=== PATIENT | female | born 1965 | race Caucasian/White ===

== ENCOUNTER 2017-05-04 17:04 | Emergency (ER) | payer BC ==
[2017-05-04 18:10] VITALS: BP 112/70
--- NOTE | 2017-05-04 18:12 | UC ---
Throat Pain/Nasal Serjio HPI - HPI Summary HPI Summary: 52 y/o female presents to the urgent care c/o sinus congestion, with clear nasal discharge since Sunday05/02/2017. Pt reports states symptoms started worse with B/L ear pressure, ORTIZ and dry cough yesterday, specially at night time. She started using Flonase nasal spray yesterday with Benadryl PO to alleviate symptoms. Pt denies fever, SOB, chest pain, N/V/D. Pt recently had the flu vaccine - History of Current Complaint Chief Complaint: UCGeneralIllness Stated Complaint: SINUSES Time Seen by Provider: 05/04/17 17:22 Hx Obtained From: Patient Hx Last Menstrual Period: NONE SINCE 2009 ?: No Onset/Duration: Gradual Onset, Lasting Days - 3 days, Still Present Severity: Mild Pain Intensity: 4 - sinus pain Pain Scale Used: 0-10 Numeric Cough: Nonproductive Associated Signs & Symptoms: Positive: Sinus Discomfort, Nasal Discharge. Negative: Dysphagia, Wheezing, Fever Related History: Seasonal Allergies - Epiglottits Risk Factors Epiglottis Risk Factors: Negative - Allergies/Home Medications Allergies/Adverse Reactions: Allergies Allergy/AdvReac Type Severity Reaction Status Date / Time Meloxicam Allergy Severe See Comment Verified 05/04/17 18:10 PMH/Surg Hx/FS Hx/Imm Hx Previously Healthy: Yes - Pt denies PMHX - Surgical History Surgical History: Yes Surgery Procedure, Year, and Place: Tonsilectomy. POLYPECTOMY-CERVICAL. CYSTECTOMY-BREAST - Family History Known Family History: Positive: None - Pt denies FMHX - Social History Occupation: Employed Full-time Lives: With Family Alcohol Use: Occasionally Substance Use Type: None Smoking Status (MU): Never Smoked Tobacco - Immunization History Most Recent Influenza Vaccination: [id number] Vaccination Up to Date: Yes Review of Systems Constitutional: Negative Skin: Negative Eyes: Negative ENT: Ear Ache - B/L ear pressure, Nasal Discharge - clear nasal discharge, Sinus Congestion, Sinus Pain/Tenderness Respiratory: Cough - dry Cardiovascular: Negative Gastrointestinal: Negative Genitourinary: Negative Motor: Negative Neurovascular: Negative Musculoskeletal: Negative Neurological: Negative Psychological: Negative Is Patient Immunocompromised?: No All Other Systems Reviewed And Are Negative: Yes Physical Exam Triage Information Reviewed: Yes - Additional Comments Vitals: reviewed General: Well developed, well-nourished female patient with NAD. Head and face: Normocephalic and atraumatic, Positive tenderness over the frontal and maxillary sinuses.. Eyes: PERRLA, EOMI x 2. Normal conjunctiva. No eye discharge. ENT: Ears and TM with normal limits. Nose: with yellowish discharge and erythematous mucosa. Pharynx with erythema, no exudate. Neck: Supple, no JVD, no carotid bruits and no lymphadenopathy. Lungs: clear, no rales, no rhonchi, no wheezes. CVS: RRR, S1 and S2 present no murmurs or gallops appreciated. Abdomen: soft nontender with positive bowel sounds. Extremities: no edema noted. Neuro: WNL. Throat Pain/Nasal Course/Dx - Course Course Of Treatment: 52 y/o female presents to the urgent care c/o sinus congestion, with clear nasal discharge since Sunday05/02/2017. Pt reports states symptoms started worse with B/L ear pressure, ORTIZ and dry cough yesterday , specially at night time. She started using Flonase nasal spray yesterday with Benadryl PO to alleviate symptoms. Pt denies fever, SOB, chest pain, N/V/DPt recently had the flu vaccine. Hx obtained. Pt with allergic sinusitis on examination. Pt Rx Claritin PO, advised to continue using the Flonase nasal spray, increase fluid intake, rest and eat well. Take Tylenol PO for sinus pain or headache. Pt explained D/C instructions. Pt understood and agreed with plan of care. Discharge instructions explained to Pt. Advised to Return to the clinic or PCP if symptoms do not improve.Pt understood and agreed with plan of care. - Differential Dx/Diagnosis Differential Diagnosis/HQI/PQRI: Influenza, Laryngitis, Otitis Media, Pharyngitis, Sinusitis, Tonsillitis, URI Provider Diagnoses: 1- Acute sinusitis Discharge - Discharge Plan Condition: Stable Disposition: HOME Prescriptions: Loratadine & Pseudoephedrine [Claritin-D 12 Hour] 1 tab PO BID #30 tab Patient Education Materials: Sinusitis (ED), Upper Respiratory Infection (ED) Referrals: Taj Conway DO [Primary Care Provider] - Additional Instructions: 1- Please increase fluid intake and rest. 2-Continue using Flonase as directed to help drain fluid. Also buy saline drops to clear sinuses 3-Take Sudafed or Claritin PO to alleviates sinus congestion 4-Return to the clinic or PCP if symptoms do not improve for further management and treatment 5- Take Tylenol or Ibuprofen PO to alleviate sinus pain or headache
== END 2017-05-04 18:20 | disposition home or self-care (01) ==
LOC: UCCORT 17:04
DX: J01.90 Acute sinusitis, unspecified (principal)
CPT/HCPCS: 99211; G0463

== ENCOUNTER 2018-04-15 14:55 | Emergency (ER) | payer BC ==
[2018-04-15 15:31] VITALS: BP 111/59
--- NOTE | 2018-04-15 15:49 | ED ---
Throat Pain/Nasal Congestion - HPI Summary HPI Summary: 52 yr old with runny nose, post nasal drip, sinus congestion , pressure and cough. She feels she has a sinus infection. Tmax 101 over the weekend. - History of Current Complaint Chief Complaint: UCGeneralIllness Time Seen by Provider: 04/15/18 15:42 - Allergies/Home Medications Allergies/Adverse Reactions: Allergies Allergy/AdvReac Type Severity Reaction Status Date / Time meloxicam Allergy Intermediate See Comment Verified 04/15/18 15:31 PMH/Surg Hx/FS Hx/Imm Hx Respiratory History: Reports: Hx Asthma - WINTER ONLY - Surgical History Surgery Procedure, Year, and Place: Tonsilectomy. POLYPECTOMY-CERVICAL. CYSTECTOMY-BREAST Infectious Disease History: No Infectious Disease History: Denies: Traveled Outside the [place] in Last 30 Days - Family History Known Family History: Positive: None - Social History Occupation: Employed Full-time Alcohol Use: Occasionally Substance Use Type: Reports: None Smoking Status (MU): Never Smoked Tobacco Review of Systems Positive: Fever, Chills Positive: Sore Throat, Ear Ache, Nasal Discharge Positive: Cough All Other Systems Reviewed And Are Negative: Yes Physical Exam Triage Information Reviewed: Yes Vital Signs On Initial Exam: Initial Vitals Temp Pulse Resp BP Pulse Ox 97.6 F 82 16 111/59 99 04/15/18 15:25 04/15/18 15:25 04/15/18 15:25 04/15/18 15:25 04/15/18 15:25 Vital Signs Reviewed: Yes Appearance: Positive: Well-Appearing, No Pain Distress Skin: Positive: Warm, Skin Color Reflects Adequate Perfusion Head/Face: Positive: Normal Head/Face Inspection Eyes: Positive: EOMI ENT: Positive: Pharynx normal, Nasal congestion, Nasal drainage, TMs normal, Sinus tenderness Neck: Positive: Nontender Respiratory/Lung Sounds: Positive: Clear to Auscultation, Breath Sounds Present Cardiovascular: Positive: RRR. Negative: Murmur Abdomen Description: Positive: Nontender Musculoskeletal: Positive: Strength/ROM Intact Neurological: Positive: Sensory/Motor Intact, Alert, Oriented to Person Place, Time, CN Intact II-III Psychiatric: Positive: Normal - [place] Coma Scale Best Eye Response: 4 - Spontaneous Best Motor Response: 6 - Obeys Commands Best Verbal Response: 5 - Oriented Coma Scale Total: 15 Diagnostics - Vital Signs Vital Signs Temp Pulse Resp BP Pulse Ox 04/15/18 15:25 97.6 F 82 16 111/59 99 - Laboratory Lab Statement: Any lab studies that have been ordered have been reviewed, and results considered in the medical decision making process. EENT Course/Dx - Course Course Of Treatment: 52 yr old with sinusitis. Rx cefdinir - Diagnoses Provider Diagnoses: Sinusitis Discharge - Sign-Out/Discharge Documenting (check all that apply): Patient Departure All imaging exams completed and their final reports reviewed: No Studies - Discharge Plan Condition: Good Disposition: HOME Prescriptions: Cefdinir [Cefdinir 300 MG CAP] 300 mg PO BID #20 cap Patient Education Materials: Sinusitis (ED) Referrals: Massiel Cavanaugh MD [Primary Care Provider] - 1 Day - Billing Disposition and Condition Condition: GOOD Disposition: Home
== END 2018-04-15 15:53 | disposition home or self-care (01) ==
LOC: UCCORT 14:55
DX: J32.9 Chronic sinusitis, unspecified (principal); J45.909 Unspecified asthma, uncomplicated; Z88.6 Allergy status to analgesic agent
CPT/HCPCS: 99212; G0463

== ENCOUNTER 2018-11-28 16:31 | Emergency (ER) | payer BC ==
[2018-11-28 17:13] VITALS: BP 122/45
--- NOTE | 2018-11-28 17:43 | ED ---
Abdominal Pain/Female - HPI Summary HPI Summary: 53 yr old with the complaint of epigastric and bilateral upper abdominal pain. Onset one week ago. The patient denies vomiting or diarrhea. She has had some nausea. She denies fever and chills. The patient states the pain started a week ago today, and was after she took amox for dental procedure. She denies abdominal distention. - History of Current Complaint Chief Complaint: UCGI Stated Complaint: STOMACH ACHE Time Seen by Provider: 11/28/18 17:30 Hx Last Menstrual Period: NONE SINCE 2009 Pain Intensity: 1 Allergies/Adverse Reactions: Allergies Allergy/AdvReac Type Severity Reaction Status Date / Time meloxicam Allergy Intermediate See Comment Verified 04/15/18 15:31 amoxicillin Allergy GI Upset Verified 11/28/18 17:14 PMH/Surg Hx/FS Hx/Imm Hx Endocrine/Hematology History: Denies: Hx Diabetes, Hx Thyroid Disease Cardiovascular History: Denies: Hx Hypertension Respiratory History: Reports: Hx Asthma - [place]INTER ONLY Denies: Hx Chronic Obstructive Pulmonary Disease (COPD) GI History: Denies: Hx Ulcer - Surgical History Surgery Procedure, Year, and Place: Tonsilectomy. POLYPECTOMY-CERVICAL. CYSTECTOMY-BREAST Infectious Disease History: No Infectious Disease History: Denies: Hx Hepatitis, Hx Human Immunodeficiency Virus (HIV), Traveled Outside the [place] in Last 30 Days - Family History Known Family History: Positive: None - Social History Occupation: Employed Full-time Lives: With Family Alcohol Use: Rare Substance Use Type: Reports: None Smoking Status (MU): Never Smoked Tobacco Review of Systems Constitutional: Negative Positive: Abdominal Pain, Nausea. Negative: Vomiting, Diarrhea Negative: frequency, flank pain, hematuria All Other Systems Reviewed And Are Negative: Yes Physical Exam Triage Information Reviewed: Yes Vital Signs On Initial Exam: Initial Vitals Temp Pulse Resp BP Pulse Ox 98.7 F 68 18 122/45 97 11/28/18 17:02 11/28/18 17:02 11/28/18 17:02 11/28/18 17:02 11/28/18 17:02 Vital Signs Reviewed: Yes Appearance: Positive: Well-Appearing, No Pain Distress Skin: Positive: Warm, Skin Color Reflects Adequate Perfusion Head/Face: Positive: Normal Head/Face Inspection Eyes: Positive: EOMI, ISAIAH ENT: Positive: Normal ENT inspection Neck: Positive: Nontender Respiratory/Lung Sounds: Positive: Clear to Auscultation, Breath Sounds Present Cardiovascular: Positive: RRR. Negative: Murmur Abdomen Description: Positive: Other: - mild epigastric and RUQ tenderness.. Negative: Distended Musculoskeletal: Positive: Strength/ROM Intact Neurological: Positive: Sensory/Motor Intact, Alert, Oriented to Person Place, Time, CN Intact II-III, Normal Gait, Speech Normal Psychiatric: Positive: Normal - [place] Coma Scale Best Eye Response: 4 - Spontaneous Best Motor Response: 6 - Obeys Commands Best Verbal Response: 5 - Oriented Coma Scale Total: 15 Diagnostics - Vital Signs Vital Signs Temp Pulse Resp BP Pulse Ox 11/28/18 17:02 98.7 F 68 18 122/45 97 - Laboratory Lab Statement: Any lab studies that have been ordered have been reviewed, and results considered in the medical decision making process. Abdominal Pain Fem Course/Dx - Course Course Of Treatment: 53 yrold with upper abdominal pain for a week. Recommend to the ER for further work up. Patient verbalized she is going to [facility]. - Diagnoses Provider Diagnoses: Epigastric pain Discharge - Sign-Out/Discharge Documenting (check all that apply): Patient Departure All imaging exams completed and their final reports reviewed: No Studies - Discharge Plan Condition: Good Disposition: HOME Patient Education Materials: Acute Abdominal Pain (ED) Referrals: Massiel Cavanaugh MD [Primary Care Provider] - Additional Instructions: You need to go to the ER for further work up for your upper abdominal pain. Do not delay. You have verbalized that you are going to [facility] after leaving here. - Billing Disposition and Condition Condition: GOOD Disposition: Home
== END 2018-11-28 17:42 | disposition home or self-care (01) ==
LOC: UCCORT 16:31
DX: R10.13 Epigastric pain (principal)
CPT/HCPCS: 99212; G0463